=== PATIENT | male | born 1985 | race Caucasian/White ===

== ENCOUNTER 2024-05-22 11:03 | Emergency (ER) | payer SELFPAY ==
[~2024-05-22] VITALS: Ht 160 cm; Wt 59.0 kg
[2024-05-22 11:24] VITALS: O2SAT 98
[2024-05-22] MEDS: IBUPROFEN 600MG TABLET PO STA (12:09)
[2024-05-22] MEDS ORDERED: IBUP-2029 MT (13:24)
[2024-05-22 13:43] VITALS: BP 128/67; PULSE 60; RESP 16; TEMP 98.3
== END 2024-05-22 13:45 | disposition home or self-care (01) ==
LOC: ER 11:16
DX: S20.219A Contusion of unspecified front wall of thorax, initial encounter (principal); S09.8XXA Other specified injuries of head, initial encounter; F19.90 Other psychoactive substance use, unspecified, uncomplicated; V98.8XXA Other specified transport accidents, initial encounter; Y93.89 Activity, other specified; Y92.89 Other specified places as the place of occurrence of the external cause; Y99.8 Other external cause status
CPT/HCPCS: 71045; 99284